=== PATIENT | female | born 1975 | race Two or more races ===

== ENCOUNTER 2025-02-18 07:40 | Day surgery (SDC) | payer OTHER ==
[2025-02-13 10:21] VITALS: BP 123/75
[~2025-02-18] VITALS: Ht 165.1 cm; Wt 52.6 kg
[~2025-02-18 07:40] MED LIST: ESTRADIOL
[2025-02-18] MEDS ORDERED: METRONIDAZOLE/SODIUM CHLORIDE 500 MG/100 ML PIGGYBACK IV ONE (08:40)
[2025-02-18] MEDS ORDERED: CEFTRIAXONE SODIUM 1,000 MG VIAL ONE (08:41)
[2025-02-18] MEDS ORDERED: BUPIVACAINE HCL/Mpf 0.5% 10ML VIAL ONE (10:17)
[2025-02-18] MEDS ORDERED: LIDOCAINE HCL 1%/EPINEPHRINE 20ML VIAL IJ ONE (10:17)
[2025-02-18] MEDS ORDERED: HEMOSTATIC MATRIX 1 KIT KIT TOP ONE (10:17)
[2025-02-18] MEDS ORDERED: DIBUCAINE 30 GM TUBE ONE (10:17)
[2025-02-18] MEDS ORDERED: POVIDONE-IODINE 118 ML BOTT TOP ONE (10:17)
[2025-02-18] MEDS ORDERED: NEURONTIN300 MG PO (10:22)
[2025-02-18] MEDS ORDERED: CELECOXIB200 MG PO (10:22)
[2025-02-18] MEDS ORDERED: PERCOCET 5-3251 EACH PO (10:22)
[2025-02-18] MEDS ORDERED: INTESTINEX680 M1 PO (10:22)
== END 2025-02-18 17:25 | disposition home or self-care (01) ==
LOC: CIR.AMB 07:40
PROVIDERS: ATTEND Surgery
DX: K64.2 Third degree hemorrhoids (principal); K64.4 Residual hemorrhoidal skin tags; K62.5 Hemorrhage of anus and rectum